=== PATIENT | female | born 1950 | race Two or more races ===

== ENCOUNTER 2024-05-09 20:55 | Emergency (ER) | payer OTHER ==
[~2024-05-09] VITALS: Ht 162.6 cm; Wt 74.4 kg
[2024-05-09] MEDS ORDERED: ACID REDUCER20 M1 (21:04)
[2024-05-09] MEDS ORDERED: LEVOXYL75 MCG (21:04)
[2024-05-09] MEDS ORDERED: LIPITOR20 MG PO (21:04)
[2024-05-09] MEDS ORDERED: NIFEDIPINE ER30 M1 PO (21:05)
[2024-05-09] MEDS ORDERED: ZETIA10 MG (21:05)
[2024-05-09] MEDS ORDERED: TELMISARTAN-HC1 EACH PO (21:05)
[2024-05-09] MEDS ORDERED: JARDIANCE10 MG PO (21:06)
[2024-05-09] MEDS ORDERED: DEXAMETHASONE SODIUM PHOSPHATE 4 MG/ML VIAL IM STA (22:20)
[2024-05-09] MEDS ORDERED: ORPHENADRINE CITRATE 100 MG TABLET PO STA (22:20)
[2024-05-09] MEDS ORDERED: DEXAMETHASONE SODIUM PHOSPHATE 4 MG/ML VIAL ONE (22:23)
== END 2024-05-09 22:30 | disposition home or self-care (01) ==
LOC: ER 20:56
DX: M54.41 Lumbago with sciatica, right side (principal); Z88.6 Allergy status to analgesic agent; Z91.041 Radiographic dye allergy status
CPT/HCPCS: 96372; 99282; J1100